=== PATIENT | male | born 1950 | race Caucasian/White ===

== ENCOUNTER 2018-11-04 09:12 | Inpatient (IN) ==
[2018-11-04] MEDS ORDERED: NITROGLYCERIN SL 0.4 MG TABLET SL PRN (09:52)
[2018-11-04] MEDS ORDERED: ENOXAPARIN 100 MG/ML SYRINGE SUBCUT STA (09:52)
[2018-11-04 10:14] LABS: Basophils # 0.1 10*3/uL (0.0-0.2); Basophils % 0.4 % (0.0-0.8); Eosinophils # 0.1 10*3/uL (0.0-0.87); Eosinophils % 0.8 % (0.00-10.9); Hematocrit 47.8 VOL% (42.0-52.0); Hemoglobin 16.1 GM/DL (14.0-18.0); Immature Granulocytes % 0.4 %; Immature Granulocytes Absolute 0.05 #; Lymphocytes # 1.1 10*3/uL (1.4-4.0); Lymphocytes % 9.6 % (21.2-54.2); Mean Corpuscular HGB Conc 33.7 GM/DL (32-36); Mean Corpuscular Hemoglobin 29 PG (27-34); Mean Corpuscular Volume 86.4 FL (87-102); Mean Platelet Volume 10.5 FL (9.6-12.0); Monocytes # 0.6 10*3/uL (0.11-0.8); Monocytes % 4.7 % (1.7-12.7); Neutrophils # 9.9 10*3/uL (1.4-7.4); Neutrophils % 84.1 % (38.7-73.9); Platelet Count 236 T/CUMM (130-400); Red Blood Count 5.53 MC/CUMM (3.8-5.5); Red Cell Distribution Width 12.3 % (9.3-17.3); White Blood Count 11.8 T/CUMM (4-12)
[2018-11-04] MEDS ORDERED: ENOXAPARIN 120 MG/0.8 ML SYRINGE SUBCUT ONE (10:20)
[2018-11-04] MEDS ORDERED: ENOXAPARIN 30 MG/0.3 ML SYRINGE ONE (10:23)
[2018-11-04 10:32] LABS: Alanine Aminotransferase 33 U/L (16-61); Albumin 3.6 G/DL (3.4-5.0); Alkaline Phosphatase 99 U/L (45-117); Aspartate Amino Transferase 19 U/L (0-37); Bilirubin,Total < 0.39 MG/DL (0.2-1.0); Blood Urea Nitrogen 18 MG/DL (7-18); Calcium 8.7 MG/DL (8.5-10.1); Glucose 183 MG/DL (74-106); Osmolality,Calculated 283.5 MOS/KG (273-304); Potassium 4.1 MMOL/L (3.5-5.1); Sodium 139 MMOL/L (136-145); Total Protein 6.6 G/DL (6.4-8.3)
[2018-11-04] MEDS ORDERED: BISACODYL 5 MG TABLET PO PRN (12:10)
[2018-11-04] MEDS ORDERED: MAGNESIUM SULF RIDER 4 GM in PREMIX 1 EACH IV PRN (12:10)
[2018-11-04] MEDS ORDERED: MAGNESIUM SULF RIDER 2 GM in PREMIX 1 EACH IV PRN ×2 (12:10→12:14)
[2018-11-04] MEDS ORDERED: DOCUSATE SODIUM 100 MG CAPSULE PO PRN (12:10)
[2018-11-04] MEDS ORDERED: diphenhydrAMINE CAP 25 MG CAPSULE PO PRN (12:10)
[2018-11-04] MEDS ORDERED: ZALEPLON 5 MG CAPSULE PO PRN (12:10)
[2018-11-04] MEDS ORDERED: MORPHINE 4 MG/1 ML VIAL IV PRN (12:10)
[2018-11-04] MEDS ORDERED: ONDANSETRON 4 MG/2 ML VIAL IV PRN (12:10)
[2018-11-04] MEDS ORDERED: ACETAMINOPHEN 325 MG TABLET PO PRN (12:10)
[2018-11-04] MEDS ORDERED: DIAZEPAM 5 MG TABLET PO ONE (12:14)
[2018-11-04] MEDS ORDERED: diphenhydrAMINE CAP 25 MG CAPSULE PO ONE (12:14)
[2018-11-04] MEDS ORDERED: POTASSIUM CHLORIDE RIDER 10 MEQ in PREMIX 1 EACH IV PRN (12:14)
[2018-11-04] MEDS ORDERED: ASPIRIN 325 MG TABLET ONE (12:23)
[2018-11-04] MEDS ORDERED: ASPIRIN 325 MG TABLET PO ONE (12:32)
[2018-11-04] MEDS: SODIUM CHLORIDE 0.9% 1,000 ML IV SCH ×3 (12:34→19:06)
[2018-11-04] MEDS: PANTOPRAZOLE 40 MG TABLET PO SCH (14:26)
[2018-11-04] MEDS ORDERED: fentaNYL 100 MCG/2 ML VIAL ONE ×2 (15:30→17:35)
[2018-11-04] MEDS ORDERED: LIDOCAINE 1% 20 ML VIAL ONE (15:30)
[2018-11-04] MEDS ORDERED: MIDAZOLAM 2 MG/2 ML VIAL ONE (15:30)
[2018-11-04] MEDS ORDERED: TIROFIBAN 5,000 MCG/100 ML PREMIX IV ONE (15:59)
[2018-11-04] MEDS ORDERED: HEPARIN 5,000 UNIT/1 ML VIAL ONE (16:06)
[2018-11-04] MEDS ORDERED: TICAGRELOR 90 MG TABLET ONE ×2 (16:27)
[2018-11-04] MEDS ORDERED: NITROGLYCERIN DRIP 50 MG/250 ML BOTTLE IV ONE ×2 (16:28→19:37)
[2018-11-04] MEDS ORDERED: METOPROLOL TARTRATE 5 MG/5 ML VIAL IV ONE (16:32)
[2018-11-04] MEDS ORDERED: NITROGLYCERIN 2% OINT 1 INCH/GM PACK TOP ONE ×2 (17:33→17:52)
[2018-11-04] MEDS ORDERED: fentaNYL 100 MCG/2 ML VIAL IV ONE (17:52)
[2018-11-04] MEDS ORDERED: fentaNYL 100 MCG/2 ML VIAL IV PRN (18:30)
[2018-11-04] MEDS ORDERED: NITROGLYCERIN DRIP 50 MG/250 ML BOTTLE IV PRN (19:42)
[2018-11-04] MEDS ORDERED: clonazePAM 0.5 MG TABLET PO PRN (19:42)
[2018-11-04] MEDS ORDERED: clonazePAM 0.5 MG TABLET PO ONE (19:43)
[2018-11-04 19:46] LABS: Troponin I 0.204 NG/ML (0.00-0.045)
[2018-11-04] MEDS: TICAGRELOR 90 MG TABLET PO SCH (20:07)
[2018-11-04] MEDS: ROSUVASTATIN 10 MG TABLET PO SCH (20:08)
[2018-11-04] MEDS: CARVEDILOL 6.25 MG TABLET PO SCH (20:08)
[2018-11-04] MEDS: SERTRALINE 25 MG TABLET PO SCH (20:08)
[2018-11-05] MEDS ORDERED: MORPHINE 4 MG/1 ML VIAL IV PRN (00:27)
[2018-11-05] MEDS ORDERED: ALUM/MAG/SIMETH/LIDO VISC 1:1 30 ML BOTTLE PO PRN (00:28)
[2018-11-05] MEDS: SODIUM CHLORIDE 0.9% 1,000 ML IV SCH (00:50)
[2018-11-05 05:21] LABS: Basophils % 0.3 % (0.0-0.8); Eosinophils % 0.3 % (0.00-10.9); Hematocrit 42.5 VOL% (42.0-52.0); Hemoglobin 13.9 GM/DL (14.0-18.0); Immature Granulocytes Absolute 0.13 #; Lymphocytes % 7.8 % (21.2-54.2); Mean Corpuscular HGB Conc 32.7 GM/DL (32-36); Mean Corpuscular Hemoglobin 29 PG (27-34); Mean Corpuscular Volume 87.8 FL (87-102); Mean Platelet Volume 10.7 FL (9.6-12.0); Monocytes % 7.9 % (1.7-12.7); Neutrophils # 10.6 10*3/uL (1.4-7.4); Neutrophils % 82.7 % (38.7-73.9); Platelet Count 240 T/CUMM (130-400); Red Blood Count 4.84 MC/CUMM (3.8-5.5); Red Cell Distribution Width 12.4 % (9.3-17.3); White Blood Count 12.9 T/CUMM (4-12)
[2018-11-05 05:33] LABS: Osmolality,Calculated 279.5 MOS/KG (273-304); Potassium 4.4 MMOL/L (3.5-5.1)
[2018-11-05 05:49] LABS: Troponin I 4.18 NG/ML (0.00-0.045)
[2018-11-05] MEDS: ASPIRIN CHEW 81 MG TABLET PO SCH (09:30)
[2018-11-05] MEDS: CARVEDILOL 6.25 MG TABLET PO SCH ×2 (09:30→17:16)
[2018-11-05] MEDS: PANTOPRAZOLE 40 MG TABLET PO SCH (09:30)
[2018-11-05] MEDS: TICAGRELOR 90 MG TABLET PO SCH ×2 (09:30→21:49)
[2018-11-05 11:28] LABS: CKMB % 9.9 %
[2018-11-05 11:38] LABS: Troponin I 6.94 NG/ML (0.00-0.045)
[2018-11-05] MEDS: DORZOLAMIDE 2% OPH SOLN 10 ML BOTTLE LEFT EYE SCH ×2 (16:11→21:51)
[2018-11-05] MEDS: SERTRALINE 25 MG TABLET PO SCH (21:48)
[2018-11-05] MEDS: ROSUVASTATIN 10 MG TABLET PO SCH (21:48)
[2018-11-06 08:06] LABS: Basophils # 0.1 10*3/uL (0.0-0.2); Basophils % 0.4 % (0.0-0.8); Eosinophils # 0.2 10*3/uL (0.0-0.87); Eosinophils % 1.2 % (0.00-10.9); Hematocrit 42.7 VOL% (42.0-52.0); Hemoglobin 14.4 GM/DL (14.0-18.0); Immature Granulocytes % 0.4 %; Immature Granulocytes Absolute 0.05 #; Lymphocytes # 1.2 10*3/uL (1.4-4.0); Mean Corpuscular HGB Conc 33.7 GM/DL (32-36); Mean Corpuscular Hemoglobin 30 PG (27-34); Mean Corpuscular Volume 87.9 FL (87-102); Mean Platelet Volume 10.3 FL (9.6-12.0); Monocytes # 1.4 10*3/uL (0.11-0.8); Monocytes % 11.2 % (1.7-12.7); Neutrophils # 9.3 10*3/uL (1.4-7.4); Neutrophils % 76.8 % (38.7-73.9); Platelet Count 208 T/CUMM (130-400); Red Blood Count 4.86 MC/CUMM (3.8-5.5); Red Cell Distribution Width 12.4 % (9.3-17.3); White Blood Count 12.1 T/CUMM (4-12)
[2018-11-06 08:30] LABS: Calcium 8.3 MG/DL (8.5-10.1); Osmolality,Calculated 273.8 MOS/KG (273-304); Potassium 3.8 MMOL/L (3.5-5.1)
[2018-11-06] MEDS: ASPIRIN CHEW 81 MG TABLET PO SCH (10:14)
[2018-11-06] MEDS: TICAGRELOR 90 MG TABLET PO SCH (10:14)
[2018-11-06] MEDS: CARVEDILOL 6.25 MG TABLET PO SCH (10:14)
[2018-11-06] MEDS: PANTOPRAZOLE 40 MG TABLET PO SCH (10:15)
[2018-11-06] MEDS: DORZOLAMIDE 2% OPH SOLN 10 ML BOTTLE LEFT EYE SCH (10:16)
[2018-11-06] MEDS ORDERED: CARVEDILOL 6.25 MG TABLET PO SCH ×2 (10:42→21:00)
[2018-11-06 12:26] VITALS: BP 124/71
== END 2018-11-06 12:23 | disposition home or self-care (01) | DRG 247 ==
LOC: N.EDINP 09:12 → N.ED 09:12 → N.TELEN 11:34 → N.CC 18:25 → N.TELEN 11-05 16:25
PROVIDERS: ADMIT Internal Medicine Cardiovascular Disease; ATTEND Internal Medicine Cardiovascular Disease
PROC: CLCCHCL (ICD-10-PCS; 2018-11-04 15:45)

== ENCOUNTER 2018-11-21 23:37 | Inpatient (IN) ==
[2018-11-21] MEDS ORDERED: LORazepam 2 MG/1 ML VIAL IV STA (23:58)
[2018-11-21] MEDS ORDERED: METOPROLOL TARTRATE 5 MG/5 ML VIAL IV STA (23:58)
[2018-11-21] MEDS ORDERED: ASPIRIN 325 MG TABLET PO STA (23:58)
[2018-11-21] MEDS ORDERED: ONDANSETRON 4 MG/2 ML VIAL IV STA (23:58)
[2018-11-22] MEDS ORDERED: ENOXAPARIN 120 MG/0.8 ML SYRINGE SUBCUT STA (00:24)
[2018-11-22 01:00] LABS: Alanine Aminotransferase 26 U/L (16-61); Albumin 3.3 G/DL (3.4-5.0); Alkaline Phosphatase 106 U/L (45-117); Aspartate Amino Transferase 20 U/L (0-37); Bilirubin,Total < 0.39 MG/DL (0.2-1.0); Blood Urea Nitrogen 15 MG/DL (7-18); Calcium 8.5 MG/DL (8.5-10.1); Glucose 124 MG/DL (74-106); Osmolality,Calculated 280.4 MOS/KG (273-304); Potassium 4.3 MMOL/L (3.5-5.1); Sodium 140 MMOL/L (136-145); Total Protein 6.7 G/DL (6.4-8.3)
[2018-11-22 01:03] LABS: Troponin I < 0.015 NG/ML (0.00-0.045)
[2018-11-22] MEDS ORDERED: LORazepam 1 MG TABLET PO STA (01:09)
[2018-11-22] MEDS ORDERED: ONDANSETRON 4 MG/2 ML VIAL IV PRN (01:09)
[2018-11-22 01:12] LABS: Basophils # 0.1 10*3/uL (0.0-0.2); Basophils % 0.7 % (0.0-0.8); Eosinophils # 0.4 10*3/uL (0.0-0.87); Eosinophils % 3.8 % (0.00-10.9); Hematocrit 42.6 VOL% (42.0-52.0); Hemoglobin 14.4 GM/DL (14.0-18.0); Immature Granulocytes % 0.4 %; Immature Granulocytes Absolute 0.04 #; Lymphocytes # 1.7 10*3/uL (1.4-4.0); Lymphocytes % 17.5 % (21.2-54.2); Mean Corpuscular HGB Conc 33.8 GM/DL (32-36); Mean Corpuscular Hemoglobin 30 PG (27-34); Mean Corpuscular Volume 87.7 FL (87-102); Mean Platelet Volume 10.5 FL (9.6-12.0); Monocytes # 1.1 10*3/uL (0.11-0.8); Monocytes % 11.9 % (1.7-12.7); Neutrophils # 6.2 10*3/uL (1.4-7.4); Neutrophils % 65.7 % (38.7-73.9); Platelet Count 278 T/CUMM (130-400); Red Blood Count 4.86 MC/CUMM (3.8-5.5); Red Cell Distribution Width 12.4 % (9.3-17.3); White Blood Count 9.4 T/CUMM (4-12)
[2018-11-22 01:18] LABS: INR 0.9; PT Patient Result 10.1 SECS; Partial Thromboplastin Time 27.6 SECS (0-40)
[2018-11-22 05:18] LABS: Troponin I < 0.015 NG/ML (0.00-0.045)
[2018-11-22] MEDS ORDERED: CARVEDILOL 12.5 MG TABLET PO SCH (08:00)
[2018-11-22] MEDS ORDERED: DORZOLAMIDE 2% OPH SOLN 10 ML BOTTLE LEFT EYE SCH (09:00)
[2018-11-22] MEDS ORDERED: TICAGRELOR 90 MG TABLET PO SCH (09:00)
[2018-11-22] MEDS ORDERED: PANTOPRAZOLE 40 MG TABLET PO SCH (09:00)
[2018-11-22] MEDS ORDERED: ASPIRIN 325 MG TABLET PO SCH (09:00)
[2018-11-22 12:06] VITALS: BP 154/78
[2018-11-22] MEDS ORDERED: ROSUVASTATIN 10 MG TABLET PO SCH (21:00)
== END 2018-11-22 13:03 | disposition home or self-care (01) | DRG 880 ==
LOC: N.ED 23:37 → N.EDINP 11-22 01:08 → N.TELES 11-22 02:10
PROVIDERS: ADMIT Internal Medicine Cardiovascular Disease; ATTEND Internal Medicine Cardiovascular Disease